=== PATIENT | female | born 1960 | race Caucasian/White ===

== ENCOUNTER 2019-07-06 11:30 | Outpatient (RCR) | payer BC, SELFPAY ==
--- NOTE | 2019-06-30 10:55 | HP.PTEVAL ---
Patient's Visit Information TY VOSS is a 58 year old F referred to Physical Therapy by Lucho Bland MD with a diagnosis of R BPPV and cervicalgia. Date of Evaluation: 06/30/19 Physical Therapist: HARLAN Garner - Visit Plan Frequency: 1-2x /Week Duration: 2 Months Plan: Re check R Hallpike next visit and see if symptoms abolished and if test is negative. Check cervical. Check balance. Check VOR. wanted 2X/ week for 8 weeks depending on above findings - Subjective Findings: Pt has been having severe MIX and numbness in the L side. She has a constant pressure or air movement in her R ear. He said she has vertigo on the R side and she started on migrnae meds. She gets dizzy spells if she stands up or moves to quickly. She gets spinning and cloudy.... it is sporadic. She normally walks 3-5 miles a day and has limited that due to veering off and feeling unsteady. This has been going on the last 3-4 months. She gets MIX and has a lot of stress at work. She has had no falls. She says sometimes she will notice dizziness with rolling but not consistent. Her BP is normal and he did check orthostatics..... She has occ she has blurriness and at times somethings will look fuzzy to her. SHe has no ringing but air in her R ear. EMG scheduled. She has neck pain a couple times a week and cold weather makes it worse. She reports that her neck pain is at the base of her neck and top of her shoulders and is worse with stress. 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 She feels that she slouches more than she should at work. She was treated for sinus infection for 3 rounds of antibiotics and then was sento to Dr Bland. She heard the ear thing more with flying. - Pain MIX Pain Intensity (Out of 10): 4 - Objective Hallpike to the R ( questionable small nystagmus, dizziness, blurriness). Hallpike to the L negative for nystagmus, dizziness and blurriness. Hallpike to the R (questionable small nystagmus, dizziness and slight blurriness). R EPLY performed. Hallpike to the R was negative for nystagmus, dizziness. Pt felt that the air in her R ear was less after the EPLY.... - Goals Goal 1:: I HEP Goal Time Frame: 4-6 Weeks Goal 2:: Decrease c/o dizziness by 50% Goal Time Frame: 4-6 Weeks - Rehabilitation Potential Rehabilitation Potential: Good - Anticipated Interventions Patient/Client Instruction: Educate patient on: Condition, Plan of Care For the Purpose of:: To improve muscle performance and motor function, To improve ability to perform ADL's, To increase tolerance to activity/condition/position, To improve performance and independence with ADL's, To improve ability of physical actions for home/community/work/leisure, To improve gait and locomotor functions, To improve balance Therapeutic Exercise to Include: Strength training, Balance training, Gait and locomotor training, Neuromotor development For the Purpose of:: To improve ability to perform ADL's, To increase tolerance to activity/condition/position, To improve ability of physical actions for home/community/work/leisure, To improve gait and locomotor functions, To improve balance, To improve safety with gait Manual Therapy Techniques to Include: Other Thank you for the opportunity to evaluate your patient. For Medicare and Medicare HMO plans, please review the plan of care and approve it. It will need to be FAXED BACK to us at [phone] for Medicare purposes. For Medicare only, by signing this I certify the plan of care. Please let me know if there are questions or concerns regarding this plan of care. Physician Signature: Date:
--- NOTE | 2019-07-06 11:55 | HP.PTDCSUM ---
HP - PT D/C Summary It has been my pleasure to treat TY VOSS under orders from Lucho Bland MD, for the diagnosis of R BPPV and cervicalgia for a total of 2 visit(s). Discharge Date: 07/06/19 Please see the following information for a summary of their discharge status. - Subjective Subjective: She feels better and the R air movement is not there. She was lifting and bending all weekend and feels much better. Neck pain is baseline tightness. SHe feels that her balance is pretty good. Pt feels that her neck pain is tightness and is baseline and does not feel that she has a balance - Pain MIX Pain Intensity (Out of 10): 4 - Overall Improvement % Improvement: 90 - Objective Objective/Function: -R Hallpike for dizziness and nystagmus - Goals Goal 1:: I HEP Goal Progress: Goal Met Goal 2:: Decrease c/o dizziness by 50% Goal Progress: Goal Met - Plan Plan: DC PT - D/C Information Discharge Comments: DC PT If there are questions or concerns regarding this patient's physical therapy, please feel free to call me at [phone]. Thank you for the referral of this patient. Sincerely, Mya Huntley, MPT
== END 2019-07-06 19:00 | disposition home or self-care (01) ==
LOC: PT 11:30
PROVIDERS: Family Provider Family Medicine; PCP Family Medicine; Referring Provider Psychiatry & Neurology Neurology; Visit Provider Psychiatry & Neurology Neurology
DX: H81.11 Benign paroxysmal vertigo, right ear (principal); M54.2 Cervicalgia
CPT/HCPCS: 97162; 97530

== ENCOUNTER 2023-04-10 08:00 | Outpatient (RCR) | payer OTHER, SELFPAY ==
--- NOTE | 2023-03-18 07:47 | HP.PTEVAL_ITS ---
Patient's Visit Information TY VOSS is a 62 year old F referred to Physical Therapy by GAVINO James with a diagnosis of Lumbar ligament sprain. Date of Evaluation: 03/18/23 Physical Therapist: Jay Solomon, AGT, OCS, CSCS - Visit Plan Frequency: 2-3x /Week Duration: 4-6 Weeks Plan: 2-3x/week for 4 weeks for. 1. Lumbar ext ROM and mobs as needed. 2. LB ROM progression. 3. Lumbar and core strength, DLS, body mechanics, postural focus. May use MH and STM and TENS if needed for pain - Subjective A month ago was at work and bent down to get something(02/20). Not sure why it happened as she does this all time. Pain is in LB and down L leg to the knee laterally intermittently. It gets to 8/10 if sits or stands too long. Gets better with walking. Used to walk 3-5 miles per day and now can only go one.. Worse in am. Sleep is intermittently uncomfortable. 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 Hobbies include watching [employer] ball and can do that but sitting to get to [place] is difficult and uncomfortable. Ex is walking. Stretching given to her form doctor trunk rotation and bend to toes. Basic ADLs are getting done. - Pain LBP Pain Intensity (Out of 10): 7 Pain Intensity Range: 4, 7 - Objective Walks I into PT slow but steady and safe. Transfers i bed and chair but bed trasnfer slow and hesitant especially rolling. Lumbar AROM ext mod limited and painful , flexion stretchy but no pain, SB are decent without pain. Posture is flat lordosis in lumbar region. Mod tightness present in HS and quad B. reflexes 2/3 patella and achilles. Sensation LE WNL to gross light touch in LE B. strength in hips is 3+ ext and abduction and 4- flexion. knees and ankles 4/5 without myotomal problems. - slump, - SLR - Balance/Special Test Scores Oswestry Low Back Score: 20 - Goals Goal 1:: LBP 0/10 at rest, 90% better and 2/10 at worst. Goal Time Frame: 4-6 Weeks Goal 2:: Pt able to sit at work and in car to [place] without increased back pain Goal Time Frame: 4-6 Weeks Goal 3:: I appropr HEP to limit future problems with back aincluding body mechanics. Goal Time Frame: 4-6 Weeks Goal 4:: Oswestry score 4 or better Goal Time Frame: 4-6 Weeks Goal 5:: resume walking 3 miles without increased pain Goal Time Frame: 4-6 Weeks - Rehabilitation Potential Physical Therapy Diagnosis: LBP sprain vs discal pathology Rehabilitation Potential: Fair - Anticipated Interventions Patient/Client Instruction: Educate patient on: Condition, Plan of Care For the Purpose of:: To decrease pain, To increase ROM, To improve nutrient delivery to tissue, To increase tolerance to activity/condition/position, To improve ability of physical actions for home/community/work/leisure, To improve gait and locomotor functions Therapeutic Exercise to Include: Strength training, Postural training, Flexibilty training, Gait and locomotor training, Passive ROM, Active ROM, Dynamic Lumbar Stabilization, Zander Exercises For the Purpose of:: To decrease pain, To increase ROM, To improve nutrient delivery to tissue, To improve muscle performance and motor function, To increase tolerance to activity/condition/position, To improve ability of p hysical actions for home/community/work/leisure Manual Therapy Techniques to Include: Mobilization, Soft tissue mobilization For the Purpose of:: To decrease pain, To increase ROM TENS: Yes Thermo therapy (hot pack): Yes For the Purpose of:: To decrease pain, To increase ROM, To improve nutrient delivery to tissue Thank you for the opportunity to evaluate your patient. For Medicare and Medicare HMO plans, please review the plan of care and approve it. It will need to be FAXED BACK to us at [phone] for Medicare purposes. For Medicare only, by signing this I certify the plan of care. Please let me know if there are questions or concerns regarding this plan of care. Physician Signature: Date:
--- NOTE | 2023-04-10 08:53 | HP.PTREVAL ---
Re-Evaluation Intro: GAVINO James, It has been my pleasure to treat TY VOSS over the last 6 visits for Lumbar ligament sprain. Please see the progress note below for an update on the physical therapy plan of care! Subjective Subjective: Getting better, less intense pain, less ften adn in small area. 3/10 intermittent pain in LB like after mowing yard last night or iof sits too long. Sleep is OK, up sometimes if back is hurting. Back to doctor after therapy. HEP: eil and some strengthening. Still tries to avoid vaccuuming. Avoids lifting boxes. Objective Objective/Function: Good AROM Lumbar spine but slow flexion and min limited ext with central pain. walks well although still stiff in lumbar area. Says 60% improved. goals still appropriate adn fair prognosis towrard same goals in next 4 weeks. Plan Plan Plan: Would like to continue 2x/week for 4 weeks to work on ext ROM and mobs, progression of core strength and confidence with lift and carry body mechanics. Pt to visit doctor and contact us after f/u and approval to schedule. Balance/Gait/Functional tests Balance/Special Test Scores Oswestry Low Back Score: 12 Goals Goals Goal 1:: LBP 0/10 at rest, 90% better and 2/10 at worst. Goal Time Frame: 4-6 Weeks Goal Progress: Progressing Goal 2:: Pt able to sit at work and in car to [place] without increased back pain Goal Time Frame: 4-6 Weeks Goal Progress: Progressing Goal 3:: I appropr HEP to limit future problems with back aincluding body mechanics. Goal Time Frame: 4-6 Weeks Goal Progress: Progressing Goal 4:: Oswestry score 4 or better Goal Time Frame: 4-6 Weeks Goal Progress: Progressing Goal 5:: resume walking 3 miles without increased pain Goal Time Frame: 4-6 Weeks Anticipated Interventions Anticipated Interventions Patient/Client Instruction: Educate patient on: Condition and Plan of Care For the Purpose of:: To decrease pain, To increase ROM, To improve nutrient delivery to tissue, To increase tolerance to activity/condition/position, To improve ability of physical actions for home/community/work/leisure and To improve gait and locomotor functions Therapeutic Exercise to Include: Strength training, Postural training, Flexibilty training, Gait and locomotor training, Passive ROM, Active ROM, Dynamic Lumbar Stabilization and Zander Exercises For the Purpose of:: To decrease pain, To increase ROM, To improve nutrient delivery to tissue, To improve muscle performance and motor function, To increase tolerance to activity/condition/position and To improve ability of physical actions for home/community/work/leisure Manual Therapy Techniques to Include: Mobilization and Soft tissue mobilization For the Purpose of:: To decrease pain and To increase ROM TENS: Yes Thermo therapy (hot pack): Yes For the Purpose of:: To decrease pain, To increase ROM and To improve nutrient delivery to tissue Re-Evaluation Ending Re-evaluation ending: Please do not hesitate to contact me at [phone] by phone or if you have questions or concerns regarding this new plan of care! Sincerely, Jay Solomon, DPT, OCS, CSCS
--- NOTE | 2023-06-03 07:34 | HP.PT.NRP ---
Patient Information Patient Information: TY VOSS was seen in my office for initial evaluation on 03/18/23. The following Plan of Care was established for this patient: POC Established Initial Frequency: 2-3x /Week Initial Duration: 4-6 Weeks Anticipated Interventions Patient/Client Instruction: Educate patient on: Condition and Plan of Care For the Purpose of:: To decrease pain, To increase ROM, To improve nutrient delivery to tissue, To increase tolerance to activity/condition/position, To improve ability of physical actions for home/community/work/leisure and To improve gait and locomotor functions Therapeutic Exercise to Include: Strength training, Postural training, Flexibilty training, Gait and locomotor training, Passive ROM, Active ROM, Dynamic Lumbar Stabilization and Zander Exercises For the Purpose of:: To decrease pain, To increase ROM, To improve nutrient delivery to tissue, To improve muscle performance and motor function, To increase tolerance to activity/condition/position and To improve ability of physical actions for home/community/work/leisure Manual Therapy Techniques to Include: Mobilization and Soft tissue mobilization For the Purpose of:: To decrease pain and To increase ROM TENS: Yes Thermo therapy (hot pack): Yes For the Purpose of:: To decrease pain, To increase ROM and To improve nutrient delivery to tissue Last Seen Last Seen: This patient was last seen in our office 04/10/23. Pertinent comments regarding their Physical therapy will appear below: Pt seen 6 visits of POC and was 60% better. She was to continue her POC but did not schedule or attend. at this point, it has been over 6 weeks and I will discontinue due to nonattendance,. At this point I will be discontinuing this patient from physical therapy. I would be happy to see this patient again in the future if found appropriate by the physician. Thank you! Jay Solomon, DPT, OCS, CSCS Balance/Gait/Functional tests Balance/Special Test Scores Oswestry Low Back Score: 12
== END 2023-04-10 19:00 | disposition home or self-care (01) ==
LOC: PT 08:00
PROVIDERS: PCP Nurse Practitioner Family; Referring Provider Physician Assistant; Visit Provider Physician Assistant
DX: S33.5XXD Sprain of ligaments of lumbar spine, subsequent encounter (principal)
CPT/HCPCS: 97110; 97161; 97164

== ENCOUNTER → 2023-07-22 | Outpatient (CLI) | payer OTHER, SELFPAY ==
--- NOTE | 2023-07-22 08:03 | MRI_ITS ---
STUDY: MRI LUMBAR SPINE WITHOUT CONTRAST REASON FOR EXAM: Female, 63 years old. Low back pain with left lower extremity paresthesias and left leg radiculopathy. TECHNIQUE: Standardized fat and water weighted pulse sequences were obtained in the sagittal and axial planes. COMPARISON: Lumbar spine radiographs 02/20/2023. FINDINGS: T10-T11, T11-T12 and T12-L1: (Sagittal only). Normal endplates. Normal disc height, hydration and morphology. No ventral extradural defects. Normal central canal and bilateral intervertebral neural foramina. Normal lumbar lordosis. There is no substantial scoliosis. Normal conus medullaris that terminates at the lower L1 vertebral body level. L1-2: Normal endplates. Normal disc height, hydration and morphology. Normal bilateral facet joints. Normal central canal and bilateral lateral recesses. Normal bilateral intervertebral neural foramina. L2-3: Normal endplates. Minimal disc space height narrowing with mild loss of disc hydration. No ventral extradural defect. Normal facet joints. Capacious central canal and bilateral lateral recesses. Normal bilateral intervertebral neural foramina. L3-4: Normal endplates. Normal disc height, hydration and morphology. Normal bilateral facet joints. Normal central canal and bilateral lateral recesses. Normal bilateral intervertebral neural foramina. L4-5: Normal endplates. Minimal disc space narrowing. Normal disc hydration. Minimal degenerative retrolisthesis of L4 on L5. Minimal posterior bulging annulus, greater towards the left side. No significant facet arthropathy. Normal central canal and bilateral lateral recesses. Normal bilateral intervertebral neural foramina. L5-S1: Minimal Modic type II degenerative vertebral marrow fat infiltration underneath the peripheral aspects of the vertebral endplates. Minimal disc space height narrowing. Mild ventral extradural defect due to posterior bulging annulus. Mild asymmetric degenerative facet arthropathy, right greater than left. Normal central canal and bilateral lateral recesses. Moderate stenosis of the left intervertebral neural foramen due to small left posterior cephalad foraminal disc protrusion with minimal impingement in the undersurface of the left L5 nerve (series 2 and 3, image 3). Moderate stenosis of the right intervertebral neural foramen without impingement of the right L5 nerve. Normal visualized sacral ala. Normal visualized paraspinous soft tissue structures. MRI/Spine Lumbar (Routine) IMPRESSION: 1. Moderate stenosis of the left L5-S1 intervertebral neural foramen due to small left posterior cephalad foraminal disc protrusion with minimal impingement in the undersurface of the left L5 nerve (series 2 and 3, image 3). This is in addition to small posterior bulging annulus. Moderate stenosis of the right L5-S1 intervertebral neural foramina without impingement of the right L5 nerve. Advise clinical correlation if there are symptoms of left L5 nerve radiculopathy particularly upon weightbearing. 2. Minimal degenerative retrolisthesis of L4 on L5 and minimal posterior bulging annulus, greater towards the left side. 3. No MRI evidence of lumbar extruded disc fragment. Electronically Signed: Tom Arias MD at 13:38 EDT ,
== END | disposition home or self-care (01) ==
LOC: MRI 07:54
PROVIDERS: PCP Nurse Practitioner Family; Referring Provider Physician Assistant; Visit Provider Physician Assistant
DX: S33.5XXA Sprain of ligaments of lumbar spine, initial encounter (principal); X58.XXXA Exposure to other specified factors, initial encounter
CPT/HCPCS: 72148

== ENCOUNTER 2024-11-09 10:21 | Day surgery (SDC) | payer OTHER, SELFPAY ==
--- NOTE | 2024-11-06 16:50 | PAT.ANESEVAL ---
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 When Was Last Pacemaker Check QUESTION #4 FULL TEXT: You/Your Family Experience fever (hyperthermia) with Anesthesia Last Oral Intake Last Oral intake: Last Oral Intake NPO since Meds taken in AM with sips of water? Meds patient instructed to take am of surgery PONV PONV - art conservator: PONV - art conservator Female Yes 11/06/24 09:58 HX of Motion Sickness No 11/06/24 09:58 HX of N/V After Surgery No 11/06/24 09:58 Non-Smoker Yes 11/06/24 09:58 Duration of Surgery greater No 11/06/24 09:58 than 60 minutes Number of Risk Factors 2 11/06/24 09:58 PONV Score Moderate Risk 11/06/24 09:58 Height & Weight Height & Weight: Anesthesia: Height & Weight Height 5 ft 5 in 07/01/23 08:58 Respiratory Assessment Respiratory Assessment - art conservator: Respiratory Tract Infection Hx - art conservator Hx Respiratory Tract Infection No 11/06/24 09:58 STOP Sleep Apnea STOP Sleep Apnea - art conservator: STOP Sleep Apnea - art conservator Hx Hypertension No 11/06/24 09:58 Hx Sleep Apnea No 11/06/24 09:58 CPAP BIPAP Do you snore loudly (louder No 11/06/24 09:58 than talking or can be heard Do you often feel tired/ No 11/06/24 09:58 fatigued/ sleepy during daytime? Has anyone observed you stop No 11/06/24 09:58 breathing during sleep? STOP Results Negative 11/06/24 09:58 QUESTION #5 FULL TEXT : Do you snore loudly (louder than talking or can be heard through closed doors)? Tobacco Use History Tobacco Use History - art conservator: Tobacco Use History - art conservator Tobacco Use Smoking Status Never smoker 11/06/24 09:58 Hx Tobacco Use No 11/06/24 09:58 Years Smoking Packs Smoked per Day Smoking Cessation Date was within the last 15 years Hx Smoking Cessation Date Hx Smoking Cessation Counseling Hematologic Medial History Hematologic Hx - art conservator: Hematologic Medical Hx - cash person Hx of Blood Transfusion Yes 11/06/24 09:58 Hx of Transfusion in last 3 No 11/06/24 09:58 Months Date of Last Transfusion (if within last 3 months) Ever experience any problems No 11/06/24 09:58 with transfusion(s)? Specify any problems Hx of Preganancy in last 3 No 11/06/24 09:58 Months Nurse Filling Out Transfusion MGRIDALIA 11/06/24 09:58 & Questions: Date: 11/06/24 11/06/24 09:58 Time: 10:00 11/06/24 09:58 Patient unable to answer at this time (ie. confused, unrespo /Reproduction History /Reproductive History - art conservator: /Reproductive Hx- art conservator Hx Now No 11/06/24 09:58 Gestational Age (in weeks): EDC: Hx Hx Para Hx Section SAB No 11/06/24 09:58 [facility] Medical History (Updated 11/06/24 @ 10:36 by Eli Davis) Wears glasses Bipolar disorder Depression Anxiety History of kidney stones High cholesterol Restless legs Migraine headache Injury of back History of vertigo Gastric reflux Seasonal allergies Non-smoker Shortness of breath on exertion History of stress test History of echocardiogram Cardiology follow-up encounter Home Medications ?Medication ?Instructions ?Recorded ?Last Taken ?Type famotidine 40 mg tablet 40 mg PO DAILY 07/01/23 Unknown History meloxicam 7.5 mg tablet 7.5 mg PO DAILY 07/01/23 Unknown History montelukast 10 mg tablet 10 mg PO DAILY 07/01/23 Unknown History (Singulair) paroxetine HCl 10 mg tablet (Paxil) 10 mg PO DAILY 07/01/23 Unknown History bupropion HCl 150 mg 24 hr tablet, 150 mg PO DAILY 11/06/24 Unknown History extended release (Wellbutrin XL) docosahexaenoic acid (dha)-epa 120 2 cap PO DAILY 11/06/24 Unknown History mg-180 mg capsule esomeprazole magnesium 20 mg 40 mg PO QHS 11/06/24 Unknown History capsule,delayed release (Nexium) multivitamin 1 tab PO DAILY 11/06/24 Unknown History trazodone 100 mg tablet 100 mg PO QHS 11/06/24 Unknown History Allergy/AdvReac Type Severity Reaction Status Date / Time Environmental Allergies: Allergy Mild congestion Verified 11/06/24 09:53 Uncoded Surgical History (Updated 11/06/24 @ 09:58 by Eli Davis) History of colonoscopy History of hysterectomy History of tubal ligation Social History Smoking Status: Never smoker Audit: Pertinent Findings Pertinent Findings Stress test pertinent findings: July 12, 2021. Patient walked to a workload of 8.1 METS. Ejection fraction improved from 55 to 60% at rest to 70% with stress. Stress echocardiogram is negative for inducible ischemia. Echo (EF%) pertinent findings: August 11, 2021. Ejection fraction is 55 to 60%. No regional wall motion abnormality seen. No aortic stenosis seen. Right ventricular systolic pressure is 24 mmHg. Consult pertinent findings: September 25, 2021. 1. Orthostatic lightheadedness-negative tilt table and mild orthostatic changes. Patient will increase hydration and salt intake. Get up slowly from supine position. Monitor and report back. 2. Shortness of breath-recent stress test is negative for inducible ischemia and infarct. Low risk for coronary artery disease. Recommendation Anesthesia Recommendation Anesthesia recommendation: OPTIMIZED for anesthesia
--- NOTE | 2024-11-09 10:32 | PRE.ANES_ITS ---
ASA Classification* ASA Classification ASA Classification: 2 Assessment & Plan Anesthesia* Anesthesia Assessment Anesthesia Assessment: Discussed sedation and/or anesthesia options, risks, benefits, and alternatives with patient/parents/legal guardian/POA. Questions invited. The patient/parents/legal guardian/POA seems to understand and agrees to proceed with anesthesia plan. Reviewed the physical assessment, medical history, allergy history and patient home medications list prior to surgery/procedure/anesthetic and documented any changes. Performed airway and anesthesia risk assessments. 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 When Was Last Pacemaker Check QUESTION #4 FULL TEXT: You/Your Family Experience fever (hyperthermia) with Anesthesia Last Oral Intake Last Oral intake: Last Oral Intake NPO since Meds taken in AM with sips of water? Meds patient instructed to take am of surgery PONV PONV - video game designer: PONV - video game designer Female Yes 11/06/24 09:58 HX of Motion Sickness No 11/06/24 09:58 HX of N/V After Surgery No 11/06/24 09:58 Non-Smoker Yes 11/06/24 09:58 Duration of Surgery greater No 11/06/24 09:58 than 60 minutes Number of Risk Factors 2 11/06/24 09:58 PONV Score Moderate Risk 11/06/24 09:58 Height & Weight Height & Weight: Anesthesia: Height & Weight Height 5 ft 5 in 07/01/23 08:58 Respiratory Assessment Respiratory Assessment - video game designer: Respiratory Tract Infection Hx - video game designer Hx Respiratory Tract Infection No 11/06/24 09:58 STOP Sleep Apnea STOP Sleep Apnea - video game designer: STOP Sleep Apnea - video game designer Hx Hypertension No 11/06/24 09:58 Hx Sleep Apnea No 11/06/24 09:58 CPAP BIPAP Do you snore loudly (louder No 11/06/24 09:58 than talking or can be heard Do you often feel tired/ No 11/06/24 09:58 fatigued/ sleepy during daytime? Has anyone observed you stop No 11/06/24 09:58 breathing during sleep? STOP Results Negative 11/06/24 09:58 QUESTION #5 FULL TEXT : Do you snore loudly (louder than talking or can be heard through closed doors)? 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 Specify any problems Hx of Preganancy in last 3 No 11/06/24 09:58 Months Nurse Filling Out Transfusion MGRIFFITH 11/06/24 09:58 & Questions: Date: 11/06/24 11/06/24 09:58 Time: 10:00 11/06/24 09:58 Patient unable to answer at this time (ie. confused, unrespo /Reproduction History /Reproductive History - video game designer: /Reproductive Hx- video game designer Hx Now No 11/06/24 09:58 Gestational Age (in weeks): EDC: Hx Hx Para Hx Section SAB No 11/06/24 09:58 [facility] Medical History Wears glasses Bipolar disorder Depression Anxiety History of kidney stones High cholesterol Restless legs Migraine headache Injury of back History of vertigo Gastric reflux Seasonal allergies Non-smoker Shortness of breath on exertion History of stress test History of echocardiogram Cardiology follow-up encounter Home Medications ?Medication ?Instructions ?Recorded ?Last Taken ?Type famotidine 40 mg tablet 40 mg PO DAILY 07/01/23 Unkn own History meloxicam 7.5 mg tablet 7.5 mg PO DAILY 07/01/23 Unk nown History montelukast 10 mg tablet 10 mg PO DAILY 07/01/23 Unkn own History (Singulair) paroxetine HCl 10 mg tablet (Paxil) 10 mg PO DAILY 06/15 Unknown History bupropion HCl 150 mg 24 hr tablet, 150 mg PO DAILY Unknown History extended release (Wellbutrin XL) docosahexaenoic acid (dha)-epa 120 2 cap PO DAILY 10/24 01/15 Unknown History mg-180 mg capsule esomeprazole magnesium 20 mg 40 mg PO QHS 11/06/24 Unk nown History capsule,delayed release (Nexium) multivitamin 1 tab PO DAILY 11/06/24 Unkn own History trazodone 100 mg tablet 100 mg PO QHS 11/06/24 Unkno wn History Allergy/AdvReac Type Severity Reaction Status Date / Time Environmental Allergies: Allergy Mild congestion Verified 11/06/24 09:53 Uncoded Surgical History History of colonoscopy History of hysterectomy History of tubal ligation Social History Smoking Status: Never smoker Review of Systems (Anesthesia) ROS Narrative System reviewed and no additional complaints, except as documented.
[2024-11-09 10:48] VITALS: BP 116/73; PULSE 85; RESP 17; TEMP 36.6; O2SAT 100; BMI 24.7
--- NOTE | 2024-11-09 11:17 | RAD_ITS ---
EXAM: FLUOR GUIDANCE FOR SPINE INJ CLINICAL HISTORY: Chronic back pain. COMPARISON: None. TECHNIQUE: Intraoperative imaging provided for caudal block. FINDINGS: Intraoperative imaging provided for caudal block. RAD/Fluor Guidance for Spine Inj IMPRESSION: Intraoperative imaging provided for caudal block. Reading Location: [id number]
[2024-11-09] MEDS: Bupivacaine 0.25% 30 ML Vial (11:23)
[2024-11-09] MEDS: Lidocaine 1% (5 ml sdv) 5 ML Vial (11:23)
[2024-11-09] MEDS: 0.9% Normal Saline (Pres. free 10 ML Vial (11:24)
[2024-11-09] MEDS: MethylPREDNISolone Acetate 80 MG/ML Vial (11:24)
--- NOTE | 2024-11-09 11:29 | OP.PCM_ITS ---
Operative Report (Standard) Operative Information Date of Procedure: 11/09/24 Pre-Operative Diagnosis: 1 Post-Operative Diagnosis: 1 Surgery/Procedure Performed: 1 injection molder: No Type of Anesthesia: Local MAC RN Documented Start/Stop Times: Operation Date: 11/09/24 12:00 Case Time Into Pre-Op 11/09/24 10:27 Anesthesia Start 11/09/24 11:16 Into Room 11/09/24 11:16 Procedure Start 11/09/24 11:23 Procedure End 11/09/24 11:25 Anesthesia End 11/09/24 11:28 Out of Room 11/09/24 11:28 Procedure Start Time: 11:30 Procedure Stop Time: 11:30 Select all DRAINS/GRAFTS/IMPLANTS that apply: None Estimated Blood Loss: 0 Specimen collected: No Description of surgery: PREOPERATIVE DIAGNOSIS: Lumbosacral radiculopathy, lumbosacral degenerative disc disease, lumbosacral spinal stenosis POSTOPERATIVE DIAGNOSIS:Lumbosacral radiculopathy, lumbosacral degenerative disc disease, lumbosacral spinal stenosis PROCEDURE PERFORMED: Diagnostic/therapeutic caudal epidural steroid injection Under fluoroscopic guidance. ANESTHESIA: MAC. BLOOD LOSS: Minimal. COMPLICATIONS: None. DESCRIPTION OF PROCEDURE: History and physical of today was reviewed. Risks and benefits of the procedure were explained. The patient understood and agreed to proceed. Informed consent was obtained. IV inserted per routine protocol. The patient was taken to the operating room and placed in the prone position with a pillow positioned underneath the abdomen. The lower back and tailbone area was prepped and draped in a sterile fashion using iodine x3. Under fluoroscopy guidance on a lateral view, the caudal space was identified. The skin and subcutaneous tissue was anesthetized with approximately 3 mL of 1% lidocaine using a 25-gauge regular needle. Under direct visualization with fluoroscopy, using a 22-gauge 3-1/2-inch spinal needle, the needle was advanced via the skin through the sacral hiatus. The tip of the needle was passed through the sacrococcygeal ligament and advanced to approximately S4 area. After negative aspiration of blood or CSF, a total of 3 mL of contrast was injected to confirm correct placement of the needle as well as cephalad spread. The spread was followed to approximately L5 area. After confirmation on AP as well as lateral view and repeated negative aspiration, a total of 15 mL of preservative-free 0.125% Marcaine with 80 mg of Depo-Medrol was injected easily. The needle was then removed intact. The patient experienced no sign or symptoms of intrathecal or intravascular injection. The patient experienced no paresthesia. The procedure was completed without any apparent difficulty or any complications. The patient appeared to tolerate it well. ASSESSMENT AND PLAN: This is a 64-year-old female with lumbosacral radiculopathy, lumbosacral spinal stenosis, lumbosacral degenerative disc disease status post diagnostic/therapeutic caudal epidural steroid injection, patient will continue her current medications, patient will follow-up in approximately 2 weeks for reevaluation. Surgical Findings: none Complications Complications: No Admit VTE Documentation VTE Present on Admission: No VTE Mechan Device Prophylaxis: None VTE Pharm Prophylaxis ordered?: No
[2024-11-09 11:31] VITALS: BP 116/73; BP 128/84; PULSE 75; RESP 16; TEMP 37; O2SAT 97
[2024-11-09 11:34] VITALS: BP 128/84; PULSE 91; RESP 16; TEMP 37; O2SAT 97
--- NOTE | 2024-11-09 11:34 | PCM.POST.ANE ---
Anesthesia: Postop Eval I Current Vital Signs Temperature: 98.6 F Pulse Rate: 91 Blood Pressure: 128/84 Respiratory Rate: 16 Pulse Ox: 97 Assessment Airway patent: Yes Spontaneous unlabored respirations: Yes nausea: No Vomiting: No Anesthesia Complication: No Fluid Hydration Crystalloid volume administer (ml): 10 Total IV fluid infused: 10 Progress Note Anesthesia document: Postop Eval 1 completed: Yes
[2024-11-09 11:35] VITALS: BP 110/72; BP 116/73; PULSE 78; RESP 16; O2SAT 97
[2024-11-09 11:40] VITALS: BP 113/67; BP 116/73; PULSE 80; RESP 16; TEMP 36.8; O2SAT 98
[2024-11-09 11:55] VITALS: BP 116/73
--- NOTE | 2024-11-09 12:29 | POSTOPAN2_ITS ---
Anesthesia Postop Eval I Sum Postop Eval Completion status Anesthesia document: Postop Eval 1 completed: Yes Anesthesia Postop Eval I Summary Anesthesia Postop Eval I Summary: Anesthesia Postop Eval I: Assessment Summary Airway patent Yes 11/09/24 11:34 ELECTRIC ACCOUNTING MACHINE OPERATOR.TNES Spontaneous unlabored Yes 11/09/24 11:34 ELECTRIC ACCOUNTING MACHINE OPERATOR.TNES respirations Mental status nausea No 11/09/24 11:34 ELECTRIC ACCOUNTING MACHINE OPERATOR.TNES Vomiting No 11/09/24 11:34 ELECTRIC ACCOUNTING MACHINE OPERATOR.TNES Anesthesia Postop Eval I: Fluid Summary Crystalloid volume administer 10 11/09/24 11:34 ELECTRIC ACCOUNTING MACHINE OPERATOR.TNES (ml) Colloids volume administered ( ml) Blood Product volume administered (ml) Total IV fluid infused 10 11/09/24 11:34 ELECTRIC ACCOUNTING MACHINE OPERATOR.TNES Anesthesia Postop Eval I: Summary Notes Anesthesia Complication No 11/09/24 11:34 ELECTRIC ACCOUNTING MACHINE OPERATOR.TNES Anesthesia Complication Comment: Post-operative progress note Anesthesia: Postop Eval II Evaluation Mental status: Awake Pain Level: 0 nausea: No Vomiting: No
--- NOTE | 2024-11-09 12:29 | PCM.POSTANE2 ---
Anesthesia Postop Eval I Sum Postop Eval Completion status Anesthesia document: Postop Eval 1 completed: Yes Anesthesia Postop Eval I Summary Anesthesia Postop Eval I Summary: Anesthesia Postop Eval I: Assessment Summary Airway patent Yes 11/09/24 11:34 JANITOR [email or web address].[email or web address] Spontaneous unlabored Yes 11/09/24 11:34 JANITOR SUPERVISOR.[email or web address] respirations Mental status nausea No 11/09/24 11:34 JANITOR SUPERVISOR.[email or web address] Vomiting No 11/09/24 11:34 JANITOR SUPERVISOR.[email or web address] Anesthesia Postop Eval I: Fluid Summary Crystalloid volume administer 10 11/09/24 11:34 JANITOR [email or web address].[email or web address] (ml) Colloids volume administered ( ml) Blood Product volume administered (ml) Total IV fluid infused 10 11/09/24 11:34 JANITOR SUPERVISOR.[email or web address] Anesthesia Postop Eval I: Summary Notes Anesthesia Complication No 11/09/24 11:34 JANITOR SUPERVISOR.[email or web address] Anesthesia Complication Comment: Post-operative progress note Anesthesia: Postop Eval II Evaluation Mental status: Awake Pain Level: 0 nausea: No Vomiting: No
== END 2024-11-09 11:57 | disposition home or self-care (01) ==
LOC: SDC 10:21 → AC 10:23
PROVIDERS: PCP Nurse Practitioner Family; Referring Provider Anesthesiology Pain Medicine; Visit Provider Anesthesiology Pain Medicine
PROC: 3E0S3BZ Introduction of Anesthetic Agent into Epidural Space, Percutaneous Approach (ICD-10-PCS; CPT 62282; principal; 2024-11-09 11:55)
DX: M51.17 Intervertebral disc disorders with radiculopathy, lumbosacral region (principal); M48.07 Spinal stenosis, lumbosacral region; F32.A Depression, unspecified; F41.9 Anxiety disorder, unspecified; Z79.891 Long term (current) use of opiate analgesic; Z79.899 Other long term (current) drug therapy
CPT/HCPCS: 62323; 01992; 64483; 77003; A4216